=== PATIENT | male | born 1955 | race Caucasian/White ===

== ENCOUNTER 2018-11-25 12:31 | Inpatient (IN) | payer BC ==
[2018-11-25 12:44] VITALS: BMI 29.9
--- NOTE | 2018-11-25 12:52 | PDOC ---
History of Present Illness - General Chief Complaint: Chest Pain Stated Complaint: CHEST PAIN Time Seen by Provider: 11/25/18 12:51 - History of Present Illness Initial Comments: 11/25/18 12:51 Mr. Monge is a 63 yo male w/ pmh of HTN, HLD, HI (s/p 3 stents) who presents for evaluation of 1 day history of left sided chest pain. Patient reports it as a "twinge" and says it is exacerbated by deep inspiration. Patient denies any associated symptoms and reports it started last night. Cannot relate it to any activity. The patient denies shortness of breath, headache and dizziness. Denies fever, chills, nausea, vomit, diarrhea and constipation. Denies dysuria, frequency, urgency and hematuria. Past History - Past Medical History Allergies/Adverse Reactions: Allergies Allergy/AdvReac Type Severity Reaction Status Date / Time Sulfa (Sulfonamide Allergy Swelling Verified 11/25/18 12:41 Antibiotics) [Sulfa(Sulfonamide Antibiotics)] Home Medications: Ambulatory Orders Aspirin [ASA -] 81 mg PO DAILY #0 12/30/12 Amlodipine Besylate 0 mg PO DAILY 11/25/18 Atorvastatin Ca [Lipitor] 0 mg PO HS 11/25/18 Carvedilol [Coreg -] 0 mg PO BID 11/25/18 Lisinopril 0 mg PO BID 11/25/18 Ticagrelor [Brilinta] 0 mg PO BID 11/25/18 Anemia: No Asthma: No Cancer: No Cardiac Disorders: Yes (HI) CVA: No COPD: No CHF: No Dementia: No Diabetes: No GI Disorders: No Disorders: No HTN: Yes Hypercholesterolemia: Yes Liver Disease: No Seizures: No Thyroid Disease: No - Surgical History Abdominal Surgery: No Appendectomy: No Cardiac Surgery: Yes (STENT X3) Cholecystectomy: No Lung Surgery: No Neurologic Surgery: No Orthopedic Surgery: No - Immunization History Immunization Up to Date: Yes - Suicide/Smoking/Psychosocial Hx Smoking Status: Yes Smoking History: Never smoked Have you smoked in the past 12 months: No Number of Cigarettes Smoked Daily: 0 Hx Alcohol Use: No Drug/Substance Use Hx: Yes (MARIJUANA) Substance Use Type: None Hx Substance Use Treatment: No Review of Systems - Review of Systems Comments:: 11/25/18 12:51 GENERAL/CONSTITUTIONAL: No fever or chills. No weakness. HEAD, EYES, EARS, NOSE AND THROAT: No change in vision. No ear pain or discharge. No sore throat. CARDIOVASCULAR: +Left sided chest pain as described. No shortness of breath RESPIRATORY: No cough, wheezing, or hemoptysis. GASTROINTESTINAL: No nausea, vomiting, diarrhea or constipation. GENITOURINARY: No dysuria, frequency, or change in urination. MUSCULOSKELETAL: No joint or muscle swelling or pain. No neck or back pain. SKIN: No rash NEUROLOGIC: No headache, vertigo, loss of consciousness, or change in strength/ sensation. ENDOCRINE: No increased thirst. No abnormal weight change HEMATOLOGIC/LYMPHATIC: No anemia, easy bleeding, or history of blood clots. ALLERGIC/IMMUNOLOGIC: No hives or skin allergy. *Physical Exam - Vital Signs Last Vital Signs Temp Pulse Resp BP Pulse Ox 98.1 F 65 16 140/95 98 11/25/18 12:41 11/25/18 12:41 11/25/18 12:41 11/25/18 12:41 11/25/18 12:41 - Physical Exam Comments: 11/25/18 12:51 GENERAL: Awake, alert, and fully oriented, in no acute distress HEAD: No signs of trauma, normocephalic, atraumatic EYES: PERRLA, EOMI, sclera anicteric, conjunctiva clear ENT: Auricles normal inspection, hearing grossly normal, nares patent, oropharynx clear without exudates. Moist mucosa NECK: Normal ROM, supple, no lymphadenopathy, JVD, or masses LUNGS: No distress, speaks full sentences, clear to auscultation bilaterally HEART: Regular rate and rhythm, normal S1 and S2, no murmurs, rubs or gallops, peripheral pulses normal and equal bilaterally. ABDOMEN: Soft, nontender, normoactive bowel sounds. No guarding, no rebound. No masses EXTREMITIES: Normal inspection, Normal range of motion, no edema. No clubbing or cyanosis. NEUROLOGICAL: Cranial nerves II through XII grossly intact. Normal speech, normal gait, no focal sensorimotor deficits SKIN: Warm, Dry, normal turgor, no rashes or lesions noted. Moderate Sedation - Procedure Monitoring Vital Signs: Procedure Monitoring Vital Signs Temperature 98.1 F 11/25/18 12:41 Pulse Rate 65 11/25/18 12:41 Respiratory Rate 16 11/25/18 12:41 Blood Pressure 140/95 11/25/18 12:41 O2 Sat by Pulse Oximetry (%) 98 11/25/18 12:41 ED Treatment Course - LABORATORY CBC & Chemistry Diagram: 11/25/18 13:29 11/25/18 13:29 Medical Decision Making - Medical Decision Making 11/25/18 15:28 Mr. Monge is a 63 yo male w/ pmh as described who presents for evaluation of pleuritic chest pain in the setting of cardiac stents. Patient evaluated using labs including cardiac and d-dimer. D-dimer positive as below; patient currently pending Chest CTA for further evaluation. 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 Xiong. Discussed patient with Dr. Xiong's office who will fax old EKG to ER. Patient admitted for observation at this time regardless of CTA results. 11/25/18 17:47 CTA significant for extensive nonspecific mediastinal lymphadenopathy increased from prior exam. Also nonspecific 0.6cm L upper lobe pulmonary nodule as well as several small non-calcified stable R sided nodules. Discussed results with patient who consented to admission for observation and further investigation. Laboratory Results - last 24 hr 11/25/18 11/25/18 11/25/18 13:29 13:29 13:29 WBC 8.4 RBC 4.73 Hgb 14.4 Hct 40.8 MCV 86.3 MCH 30.5 MCHC 35.4 RDW 14.1 Plt Count 205 MPV 9.2 Absolute Neuts (auto) 6.7 Neutrophils % 79.5 Lymphocytes % 6.8 L D Monocytes % 7.2 Eosinophils % 5.4 H Basophils % 1.1 Nucleated RBC % 0 D-Dimer 1003 H Sodium 137 Potassium 3.8 Chloride 103 Carbon Dioxide 27 Anion Gap 7 L BUN 13 Creatinine 1.0 Creat Clearance w eGFR > 60 Random Glucose 111 H Calcium 8.9 Total Bilirubin 0.8 AST 17 ALT 29 Alkaline Phosphatase 91 Creatine Kinase 99 Troponin I < 0.02 Total Protein 7.3 Albumin 3.7 *DC/Admit/Observation/Transfer Diagnosis at time of Disposition: Chest pain Qualifiers: Chest pain type: unspecified Qualified Code(s): R07.9 - Chest pain, unspecified - Discharge Dispostion Decision to Admit order: Yes - Referrals - Patient Instructions - Post Discharge Activity
--- NOTE | 2018-11-25 13:08 | PDOC ---
Attending Attestation - ED Attending Attestation I have performed the following: I have examined & evaluated the patient, The case was reviewed & discussed with the resident, I agree w/resident's findings & plan, Exceptions are as noted - Physicial Exam PE: 11/25/18 13:51 awake alert lungs clear bilat heart rrr no mrg abd soft nt nd. ext wwp no edema. no calf tenderness. 2 + symmetric pulses bilaterally. nuero alert oriented x 3. skin warm and dry no rash. - Medical Decision Making 11/25/18 13:50 63 yo male ho HTN HLD, CAD ( 3 stents 2000, and 2 in 2014) follows dr willett cardiology here with intermittent plueritic sharp chest pain left sided. no radiation, no other mod factors. no sob. no leg swelling no h/lo pe or dvt. no calf pain. no recent travel. pt has seen dr. willett in 09/02 last stress 01/31. no pain currently. did take asa and brelenta today. <Jazmin Olson - Last Filed: 11/25/18 13:49> - HPI HPI: 11/25/18 14:07 Patient is a 63 year old male with a significant past medical history of hypertension and hypercholesterolemia (cardiac stents placed), who presents to the ED with complaints of chest pain that began last night. Patient reports experiencing mild chest pain that he states is a twinge pain that increases in intensity with deep inspiration. He reports coming into the ED for further evaluation after chest pain failed to subside over time. Denies chest pain, sob. Denies nausea, vomiting. Denies fevers, chills. Denies dysuria, hematuria. Denies constipation, Allergies: Sulfa Social history: No smoking. No alcohol. Current marijuana use. Surgical history: Caridac stents. PMD: None Cardiac Cath Lab Manager: Dr. Willett <Héctor Carmen - Last Filed: 11/25/18 14:07> Heart Score/ECG Review #1 General ECG Interpretation: Sinus Rhythm, Normal Rate, Normal Intervals Compared to previous ECG there are: Other (RBBB, TWI v1 - v3, change from ) - Era Era: Left Era Deviation <Jazmin Olson - Last Filed: 11/25/18 13:49>
[2018-11-25] MEDS ORDERED: ASPIRIN 81 MG CHEWABLE TABLETS PO ONE (13:17)
[2018-11-25] MEDS ORDERED: ASPIRIN 81 MG CHEWABLE TABLETS ONE (13:33)
[2018-11-25 14:00] LABS: BASO % 1.1 % (0-2.0); EOS % 5.4 % (0-4.5); HEMATOCRIT 40.8 % (35.4-49); HEMOGLOBIN 14.4 GM/dL (11.7-16.9); LYMPH % 6.8 % (8-40); MCH 30.5 pg (25.7-33.7); MCHC 35.4 g/dl (32.0-35.9); MEAN CELL VOLUME 86.3 fl (80-96); MEAN PLT VOLUME 9.2 fl (7.5-11.1); MONO % 7.2 % (3.8-10.2); NEUT % 79.5 % (42.8-82.8); PLATELET COUNT 205 K/MM3 (134-434); RBC 4.73 M/mm3 (4.00-5.60); RDW 14.1 % (11.9-15.9); WHITE BLOOD COUNT 8.4 K/mm3 (4.0-10.0)
[2018-11-25 14:36] LABS: ALBUMIN 3.7 g/dl (3.4-5.0); ALK PHOS 91 U/L (45-117); ANION GAP 7 MMOL/L (8-16); BILIRUBIN,TOTAL 0.8 mg/dL (0.2-1); BLOOD UREA NITROGEN 13 mg/dL (7-18); CALCIUM 8.9 mg/dL (8.5-10.1); CHLORIDE 103 mmol/L (98-107); CO2 27 mmol/L (21-32); GLUCOSE,RANDOM 111 mg/dL (74-106); POTASSIUM 3.8 mmol/L (3.5-5.1); SGOT/AST 17 U/L (15-37); SGPT/ALT 29 U/L (13-61); SODIUM 137 mmol/L (136-145); TOT PROT 7.3 g/dl (6.4-8.2)
--- NOTE | 2018-11-25 14:57 | CON.CARD ---
Consult Consult Specialty:: Cardiology Referred by:: Emergency Medicine Reason for Consultation:: Chest pain - History of Present Illness Chief Complaint: Chest pain History of Present Illness: 63 yo WM HTN, chol, CAD post STEMI (mLAD ISR) s/p ALTON 2014, presumptive pulmonary sarcoidosis (never biopsied) last seen in office 09/01/2018 presents for evaluation of 1 day history of sharp, non-exertional left sided chest pain characterized as a "twinge" and says it is exacerbated by deep inspiration and certain positions. Patient denies any associated symptoms of dyspnea, near or true syncope, palpitations, orthopnea, PND or LE edema. Cannot relate it to any activity. - History Source History Provided By: Patient Limitations to Obtaining History: No Limitations - Alcohol/Substance Use Hx Alcohol Use: No - Smoking History Smoking history: Never smoked Have you smoked in the past 12 months: No Aproximately how many cigarettes per day: 0 Home Medications - Allergies Allergies/Adverse Reactions: Allergies Allergy/AdvReac Type Severity Reaction Status Date / Time Sulfa (Sulfonamide Allergy Swelling Verified 11/25/18 12:41 Antibiotics) [Sulfa(Sulfonamide Antibiotics)] - Home Medications Home Medications: Ambulatory Orders Aspirin [ASA -] 81 mg PO DAILY #0 12/30/12 Amlodipine Besylate 0 mg PO DAILY 11/25/18 Atorvastatin Ca [Lipitor] 0 mg PO HS 11/25/18 Carvedilol [Coreg -] 0 mg PO BID 11/25/18 Lisinopril 0 mg PO BID 11/25/18 Ticagrelor [Brilinta] 0 mg PO BID 11/25/18 Review of Systems - Review of Systems Cardiovascular: reports: Chest Pain Vital Signs: Vital Signs Temperature 98.1 F 11/25/18 12:41 Pulse Rate 65 11/25/18 12:41 Respiratory Rate 16 11/25/18 12:41 Blood Pressure 140/95 11/25/18 12:41 O2 Sat by Pulse Oximetry (%) 98 11/25/18 12:41 Constitutional: Yes: No Distress, Calm Neck: Yes: Supple Respiratory: Yes: Regular, CTA Bilaterally Gastrointestinal: Yes: Normal Bowel Sounds, Soft Cardiovascular: Yes: Regular Rate and Rhythm JVD: No Carotid Bruit: No Heart Sounds: Yes: S1, S2 Edema: No - Other Data Labs, Other Data: CBC, BMP 11/25/18 13:29 11/25/18 13:29 Troponin, BNP 11/25/18 13:29 Troponin I < 0.02 Troponin, BNP 11/25/18 13:29 Troponin I < 0.02 NSR @ 63 1st deg AVB LAFB, LVH c/w previous, anterior STEMI no longer seen Imaging - Results Chest X-ray: Image Reviewed Cat Scan: Report Reviewed (Extensive mediastinal LAD, no PE) Problem List - Problems (1) Atypical chest pain Code(s): R07.89 - OTHER CHEST PAIN (2) Status post insertion of drug-eluting stent into left anterior descending ( LAD) artery Code(s): Z95.5 - PRESENCE OF CORONARY ANGIOPLASTY IMPLANT AND GRAFT (3) Old anterior myocardial infarction Code(s): I25.2 - OLD MYOCARDIAL INFARCTION (4) Hypertension Code(s): I10 - ESSENTIAL (PRIMARY) HYPERTENSION Qualifiers: Hypertension type: essential hypertension Qualified Code(s): I10 - Essential (primary) hypertension (5) Hyperlipidemia LDL goal <70 Code(s): E78.5 - HYPERLIPIDEMIA, UNSPECIFIED (6) Mediastinal lymphadenopathy due to sarcoidosis Code(s): R59.0 - LOCALIZED ENLARGED LYMPH NODES; D86.1 - SARCOIDOSIS OF LYMPH NODES Assessment/Plan Oct 2017 MPI: moderate apical infarct with small latricia-infarct ischemia, LVEF 54% Sep 2017 Echo: Normal LV systolic fxn, mild impaired LV relaxation, mild MR, TR , CT 1. Atypical chest pain syndrome, ruled out for PE 2. CAD s/p STEMI (mLAD in-stent restenosis) post ALTON, angina pectoris 3. HTN 4. Hyperlipidemia 5. Pulmonary sarcoidosis (not biopsy confirmed) 6. Low vit D levels P:1. Ruling out for CA 2. Continue Norvasc 10 qd, ASA 81 qd, Lipitor 40 qd, Brilinta 60 bid, carvedilol 25 bid, lisinopril 20 bid 3. Thank you for consultative opportunuty, f/u with Dr. Xiong upon d/c
--- NOTE | 2018-11-25 15:53 | EKG ---
Test Reason : Blood Pressure : / mmHG Vent. Rate : 063 BPM Atrial Rate : 063 BPM P-R Int : 218 ms QRS Dur : 158 ms QT Int : 454 ms P-R-T Axes : 034 -56 011 degrees QTc Int : 464 ms SINUS RHYTHM WITH 1ST DEGREE A-V BLOCK RIGHT BUNDLE BRANCH BLOCK LEFT ANTERIOR FASCICULAR BLOCK BIFASCICULAR BLOCK MODERATE VOLTAGE CRITERIA FOR LVH, MAY BE NORMAL VARIANT CANNOT RULE OUT SEPTAL INFARCT , AGE UNDETERMINED ABNORMAL ECG WHEN COMPARED WITH ECG OF 12-JUL-2015 01:20, QRS DURATION HAS INCREASED MINIMAL CRITERIA FOR SEPTAL INFARCT ARE NOW PRESENT T WAVE INVERSION NOW EVIDENT IN ANTERIOR LEADS Confirmed by VIC CHAPMAN MD ([id number]) on 11/25/2018 3:53:05 PM Referred By: Confirmed By:VIC CHAPMAN MD
[2018-11-25] MEDS: LISINOPRIL 10 MG TABLET (FP) PO SCH (21:15)
[2018-11-25] MEDS: CARVEDILOL 12.5 MG TABLET (FP) PO SCH (21:16)
[2018-11-25 21:20] LABS: CHOLESTEROL 151 mg/dL (50-200); HDL CHOLESTEROL 35 mg/dL (40-60); TRIGLYCERIDES 147 mg/dL (0-150)
[2018-11-25] MEDS ORDERED: ATORVASTATIN CA 40 MG TABLET (FP) PO SCH (22:00)
[2018-11-25] MEDS: TICAGRELOR 60 MG TABLET PO SCH (22:30)
[2018-11-26 06:46] LABS: BASO % 1.3 % (0-2.0); EOS % 6.3 % (0-4.5); HEMATOCRIT 42.9 % (35.4-49); HEMOGLOBIN 14.1 GM/dL (11.7-16.9); LYMPH % 9.3 % (8-40); MCH 28.7 pg (25.7-33.7); MCHC 32.9 g/dl (32.0-35.9); MEAN CELL VOLUME 87.4 fl (80-96); MEAN PLT VOLUME 9.3 fl (7.5-11.1); NEUT % 73.1 % (42.8-82.8); PLATELET COUNT 186 K/MM3 (134-434); RBC 4.91 M/mm3 (4.00-5.60); RDW 14.2 % (11.9-15.9); WHITE BLOOD COUNT 7.6 K/mm3 (4.0-10.0)
[2018-11-26 07:22] LABS: ALBUMIN 3.8 g/dl (3.4-5.0); ALK PHOS 89 U/L (45-117); ANION GAP 7 MMOL/L (8-16); BILIRUBIN,TOTAL 0.9 mg/dL (0.2-1); BLOOD UREA NITROGEN 12 mg/dL (7-18); CHLORIDE 104 mmol/L (98-107); CO2 29 mmol/L (21-32); CREATININE 0.9 mg/dL (0.55-1.3); GLUCOSE,RANDOM 86 mg/dL (74-106); POTASSIUM 3.6 mmol/L (3.5-5.1); SGOT/AST 14 U/L (15-37); SGPT/ALT 28 U/L (13-61); SODIUM 139 mmol/L (136-145); TOT PROT 7.3 g/dl (6.4-8.2)
--- NOTE | 2018-11-26 08:00 | HP ---
Admitting History and Physical - Admission History of Present Illness: 63 yo male ho HTN HLD, CAD ( 3 stents 2000, and 2 in 2014) c/o intermittent plueritic sharp chest pain left sided. no radiation, no other mod factors. no sob. no leg swelling no h/lo pe or dvt. no calf pain. no recent travel. pt has seen dr. willett in 09/02 last stress 01/31. no pain currently. - Past Medical History Cardiovascular: Yes: CAD, HTN, Hyperlipdemia Pulmonary: No: Asthma, COPD Hepatobiliary: No: Cirrhosis Heme/Onc: No: Anemia - Past Surgical History Past Surgical History: Yes: Stent (x3) - Smoking History Smoking history: Never smoked Have you smoked in the past 12 months: No Aproximately how many cigarettes per day: 0 - Alcohol/Substance Use Hx Alcohol Use: No Home Medications - Allergies Allergies/Adverse Reactions: Allergies Allergy/AdvReac Type Severity Reaction Status Date / Time Sulfa (Sulfonamide Allergy Swelling Verified 11/25/18 12:41 Antibiotics) [Sulfa(Sulfonamide Antibiotics)] - Home Medications Home Medications: Ambulatory Orders Aspirin [ASA -] 81 mg PO DAILY #0 12/30/12 Amlodipine Besylate 0 mg PO DAILY 11/25/18 Atorvastatin Ca [Lipitor] 0 mg PO HS 11/25/18 Carvedilol [Coreg -] 0 mg PO BID 11/25/18 Lisinopril 0 mg PO BID 11/25/18 Ticagrelor [Brilinta] 0 mg PO BID 11/25/18 Review of Systems - Review of Systems Cardiovascular: reports: Chest Pain. denies: Palpitations, Shortness of Breath Respiratory: denies: Cough, Hemoptysis, Orthopnea, SOB Gastrointestinal: denies: Abdominal Pain Physical Examination Vital Signs: Vital Signs Temperature 97.5 F L 11/26/18 06:00 Pulse Rate 65 11/26/18 06:00 Respiratory Rate 18 11/26/18 06:00 Blood Pressure 133/70 11/26/18 06:00 O2 Sat by Pulse Oximetry (%) 98 11/25/18 21:00 Cardiovascular: Yes: Regular Rate and Rhythm Respiratory: Yes: Regular, CTA Bilaterally Gastrointestinal: Yes: Normal Bowel Sounds, Soft. No: Tenderness Edema: No Labs: CBC, BMP 11/26/18 05:30 11/26/18 05:30 Imaging - Results Cat Scan: Report Reviewed (No PE Lymphadenopathy Pulm nodule) Problem List - Problems (1) Atypical chest pain Assessment/Plan: -CE Negative -PT states had a negative stress test within the year--reported neg -Cardio follow up Code(s): R07.89 - OTHER CHEST PAIN (2) Pulmonary nodule Assessment/Plan: -Pulm consult--may need pet as outpatient Code(s): R91.1 - SOLITARY PULMONARY NODULE (3) Hyperlipidemia LDL goal <70 Assessment/Plan: same meds Code(s): E78.5 - HYPERLIPIDEMIA, UNSPECIFIED (4) Hypertension Assessment/Plan: controlled Code(s): I10 - ESSENTIAL (PRIMARY) HYPERTENSION Qualifiers: Hypertension type: essential hypertension Qualified Code(s): I10 - Essential (primary) hypertension (5) Mediastinal lymphadenopathy due to sarcoidosis Assessment/Plan: -Per Pulm Code(s): R59.0 - LOCALIZED ENLARGED LYMPH NODES; D86.1 - SARCOIDOSIS OF LYMPH NODES
[2018-11-26] MEDS ORDERED: ASPIRIN 81 MG CHEWABLE TABLETS PO SCH (10:00)
[2018-11-26] MEDS ORDERED: amLODIPine BESYLATE 5 MG TABLET (FP) PO SCH (10:00)
--- NOTE | 2018-11-26 10:28 | PN ---
Progress Note, Physician History of Present Illness: Left-sided atypical pleuritic chest pain has resolved, no events on telemetry. - Current Medication List Current Medications: Active Medications Amlodipine Besylate (Norvasc -) 5 mg PO DAILY COUNTS INCLUDE 234 BEDS AT THE [facility] Aspirin (Asa -) 81 mg PO DAILY COUNTS INCLUDE 234 BEDS AT THE [facility] Atorvastatin Calcium (Lipitor -) 40 mg PO HS COUNTS INCLUDE 234 BEDS AT THE [facility] Last Admin: 11/25/18 21:15 Dose: 40 mg Carvedilol (Coreg -) 12.5 mg PO BID COUNTS INCLUDE 234 BEDS AT THE [facility] Last Admin: 11/25/18 21:16 Dose: 12.5 mg Lisinopril (Prinivil) 10 mg PO BID COUNTS INCLUDE 234 BEDS AT THE [facility] Last Admin: 11/25/18 21:15 Dose: 10 mg Ticagrelor (Brilinta) 60 mg PO BID COUNTS INCLUDE 234 BEDS AT THE [facility] Last Admin: 11/25/18 22:30 Dose: 60 mg - Objective Vital Signs: Vital Signs Temperature 97.5 F L 11/26/18 06:00 Pulse Rate 65 11/26/18 06:00 Respiratory Rate 18 11/26/18 06:00 Blood Pressure 133/70 11/26/18 06:00 O2 Sat by Pulse Oximetry (%) 98 11/25/18 21:00 Constitutional: Yes: No Distress, Calm Neck: Yes: Supple Cardiovascular: Yes: Regular Rate and Rhythm Respiratory: Yes: Regular, CTA Bilaterally Gastrointestinal: Yes: Normal Bowel Sounds, Soft Edema: No Labs: CBC, BMP 11/26/18 05:30 11/26/18 05:30 - ....Imaging EKG: Report Reviewed (Tele: NSR) Problem List - Problems (1) Atypical chest pain Code(s): R07.89 - OTHER CHEST PAIN (2) Status post insertion of drug-eluting stent into left anterior descending ( LAD) artery Code(s): Z95.5 - PRESENCE OF CORONARY ANGIOPLASTY IMPLANT AND GRAFT (3) Old anterior myocardial infarction Code(s): I25.2 - OLD MYOCARDIAL INFARCTION (4) Hypertension Code(s): I10 - ESSENTIAL (PRIMARY) HYPERTENSION Qualifiers: Hypertension type: essential hypertension Qualified Code(s): I10 - Essential (primary) hypertension (5) Hyperlipidemia LDL goal <70 Code(s): E78.5 - HYPERLIPIDEMIA, UNSPECIFIED (6) Mediastinal lymphadenopathy due to sarcoidosis Code(s): R59.0 - LOCALIZED ENLARGED LYMPH NODES; D86.1 - SARCOIDOSIS OF LYMPH NODES Assessment/Plan Oct 2017 MPI: moderate apical infarct with small latricia-infarct ischemia, LVEF 54% Sep 2017 Echo: Normal LV systolic fxn, mild impaired LV relaxation, mild MR, TR , NE 1. Atypical chest pain syndrome, ruled out for PE 2. CAD s/p STEMI (mLAD in-stent restenosis) post ALTON, angina pectoris 3. HTN 4. Hyperlipidemia 5. Presumed pulmonary sarcoidosis with extensive mediastinal LAD (not biopsy confirmed) 6. Low vit D levels P:1. Ruled out for DE 2. Continue Norvasc 10 qd, ASA 81 qd, Lipitor 40 qd, Brilinta 60 bid, carvedilol 25 bid, lisinopril 20 bid 3. F/u with Dr. Xiong upon d/c, mediastinoscopy for LN biopsy
[2018-11-26] MEDS ORDERED: PT OWN MED DRAWER 7, Y5N ONE (11:08)
[2018-11-26] MEDS: LISINOPRIL 10 MG TABLET (FP) PO SCH (11:47)
--- NOTE | 2018-11-26 11:47 | PN ---
Progress Note (short form) - Note Progress Note: PULMONARY CONSULTATION DICTATED 11/26/18 IMP EXTENSIVE MEDIASTINAL/HILAR ADENOPATHY MOST LIKELY PULMONARY SARCOID JENNI NODULE LIKELY INFLAMMATORY ,? SARCOID H/O UVEITIS CHEST PAIN ASHD S/P IN ,S/P STENTS HLD HTN PLAN PFTS OUTPAYIENT ALEX LEVEL OUTPATIENT PET SCAN OUTPATIENT THORACIC SURGERY EVALUATION FOR EBUS-TBNA BX, POSSIBLE MEDIASTINOSCOPY CARDIAC W/U F/U CHEST CT 4 MONTH TO DOCUMENT STABILITY JENNI NODULE DR LEZAMA Problem List - Problems (1) Atypical chest pain Code(s): R07.89 - OTHER CHEST PAIN (2) Mediastinal lymphadenopathy due to sarcoidosis Code(s): R59.0 - LOCALIZED ENLARGED LYMPH NODES; D86.1 - SARCOIDOSIS OF LYMPH NODES (3) Old anterior myocardial infarction Code(s): I25.2 - OLD MYOCARDIAL INFARCTION (4) Pulmonary nodule Code(s): R91.1 - SOLITARY PULMONARY NODULE (5) Status post insertion of drug-eluting stent into left anterior descending ( LAD) artery Code(s): Z95.5 - PRESENCE OF CORONARY ANGIOPLASTY IMPLANT AND GRAFT (6) STEMI (ST elevation myocardial infarction) Code(s): I21.3 - ST ELEVATION (STEMI) MYOCARDIAL INFARCTION OF UNSP SITE (7) Mediastinal lymphadenopathy Code(s): R59.0 - LOCALIZED ENLARGED LYMPH NODES (8) Hypertension Code(s): I10 - ESSENTIAL (PRIMARY) HYPERTENSION Qualifiers: Hypertension type: essential hypertension Qualified Code(s): I10 - Essential (primary) hypertension
[2018-11-26] MEDS: TICAGRELOR 60 MG TABLET PO SCH (11:48)
[2018-11-26] MEDS: CARVEDILOL 12.5 MG TABLET (FP) PO SCH (11:48)
--- NOTE | 2018-11-26 12:42 | PN ---
Progress Note (short form) - Note Progress Note: Thoracic Surgery: Images reviewed. Symmetric mediastinal adenopathy, small nodule. Needs outpatient workup including PET and pulmonary f/u, likely this is c/w sarcoid and could be managed based on symptoms. Will need interval imaging for comparison.
--- NOTE | 2018-11-26 13:28 | CONS ---
DATE OF CONSULTATION: 11/26/2018 REFERRING PHYSICIAN: Luanne Kang MD HISTORY: The patient is a 63-year-old white male with a past medical history of hypercholesterolemia, ASHD status post [place], status post drug-eluting stent in 2014, likely pulmonary sarcoid never had follow up admitted to [facility] with the complaint of 1-day history of sharp, left-sided, pleuritic chest pain increased on inspiration. The patient denied any complaints of shortness of breath, cough, or hemoptysis. Denied any fevers, chills, nausea, vomiting, or diaphoresis. On admission, the patient underwent a CTA of the chest, which revealed evidence of extensive mediastinal adenopathy and hilar adenopathy and a small nodule in the left upper lobe 0.6 cm. Of note, comparison to previous exam on August 26, 2006, there is increased size of the mediastinal adenopathy and bilateral hilar adenopathy mildly decreased. Of note is the patient also denies any skin rash. He does state that he went to an container maker a few years ago and told he had uveitis but was not advised any further workup. The patient denies any history of occupational exposure to chemicals or fumes. There is no history of recent travel. He denies any family history of sarcoid. PAST MEDICAL HISTORY: Again includes ASHD status post [place], status post multiple stents, hypertension, hyperlipidemia, uveitis. REVIEW OF SYSTEMS: No orthopnea, no PND, positive cough nonproductive, no fever , no chills, no weight loss, no night sweats. Positive mild left-sided chest pain. No lower extremities edema. No skin rashes. No significant visual disturbances. CURRENT MEDICATIONS: Include Prinivil, Coreg, Norvasc, Lipitor, aspirin, Balanta. PHYSICAL EXAMINATION: General: The patient is a well-developed, well-nourished male awake and alert in no acute distress. Vital Signs: He is afebrile. Blood pressure 133/70, respiratory rate is 18, O2 saturation 98. HEENT: Normocephalic and atraumatic. Neck: Supple. Heart: Regular with S1, S2. Chest: Clear. Abdomen: Soft. Bowel sounds are positive. Extremities: No cyanosis or edema. LABORATORIES: WBC 7.6, hemoglobin 14.1, hematocrit 42.9 with a platelet count of 186,000. D-dimer 1003. BUN 12, creatinine 0.9. Chest CT, again, is noted. Extensive mediastinal adenopathy, hilar adenopathy, and the left upper lobe, noncalcified pulmonary nodule. IMPRESSION: 1. Mediastinal adenopathy most likely secondary to sarcoidosis since this has been present since 2005 with mild increase in size without malignancy in view of the patient relatively asymptomatic and significant duration of findings on CAT scan. 2. Chest pain. 3. Arteriosclerotic heart disease status post myocardial infarction status post stents. 4. Hypertension. 5. Hyperlipidemia. 6. Uveitis. SUGGEST: Continue cardiac workup. Recommend PFT as an outpatient. Angiotensin converting enzyme level as an outpatient.PET scan outpatient. Will consider thoracic surgical consultation for EBUS-TBNA bx, possible mediastinoscopy. Obtain Ophthalmology follow up. BENJAMIN LEZAMA M.D. [id number] MTDD
--- NOTE | 2018-11-26 14:54 | DS ---
Physical Examination Vital Signs: Vital Signs Temperature 97.5 F L 11/26/18 06:00 Pulse Rate 78 11/26/18 10:00 Respiratory Rate 18 11/26/18 10:00 Blood Pressure 144/92 11/26/18 10:00 O2 Sat by Pulse Oximetry (%) 98 11/25/18 21:00 Labs: CBC, BMP 11/26/18 05:30 11/26/18 05:30 Discharge Summary Reason For Visit: CHEST PAIN Current Active Problems Atypical chest pain (Acute) Chest pain (Acute) Hyperlipidemia LDL goal <70 (Acute) Hypertension (Acute) Mediastinal lymphadenopathy (Acute) Mediastinal lymphadenopathy due to sarcoidosis (Acute) Old anterior myocardial infarction (Acute) Pulmonary nodule (Acute) Status post insertion of drug-eluting stent into left anterior descending (LAD) artery (Acute) Hospital Course: see note pt needs outpatient pet and work up Condition: Improved - Instructions Referrals: Jason Xiong MD [Primary Care Provider] - Luanne Kang MD [Staff Physician] - 2 Weeks Disposition: HOME - Home Medications Comprehensive Discharge Medication List: Ambulatory Orders Aspirin [ASA -] 81 mg PO DAILY #0 12/30/12 Amlodipine Besylate 0 mg PO DAILY 11/25/18 Atorvastatin Ca [Lipitor] 0 mg PO HS 11/25/18 Carvedilol [Coreg -] 0 mg PO BID 11/25/18 Lisinopril 0 mg PO BID 11/25/18 Ticagrelor [Brilinta] 0 mg PO BID 11/25/18
[2018-11-26 15:29] VITALS: BP 146/85; PULSE 68; TEMP 98.4
== END 2018-11-26 18:05 | disposition home or self-care (01) | DRG 313 ==
LOC: JER 12:31 → JERBED 14:43 → OBSVTOIN 17:00 → J4W 20:55
PROVIDERS: ADMIT Family Medicine; ATTEND Family Medicine
DX: R07.89 Other chest pain (principal); I10 Essential (primary) hypertension; E78.5 Hyperlipidemia, unspecified; I25.2 Old myocardial infarction; E78.00 Pure hypercholesterolemia, unspecified; R91.1 Solitary pulmonary nodule; I25.10 Atherosclerotic heart disease of native coronary artery without angina pectoris; R59.0 Localized enlarged lymph nodes; D86.1 Sarcoidosis of lymph nodes; Z95.5 Presence of coronary angioplasty implant and graft
CPT/HCPCS: 36415; 71046-TC-FY; 71275-TC; 80053; 80061; 82550; 83721; 84484; 85025; 85379; 93005; 93010; 99282-25; G0378

== ENCOUNTER 2020-08-27 01:24 | Observation (INO) | payer BC ==
--- NOTE | 2020-08-27 01:46 | PDOC ---
History of Present Illness - General Chief Complaint: Head/Neck problem Stated Complaint: HEAD PRESSURE Time Seen by Provider: 08/27/20 01:46 tPA Exclusion checklist 3-4.5h - Time Elapsed Date last known well: 08/26/20 Time last known well: 20:00 Elaspsed time: Day(s) and 10 Hour(s) and 37 Minutes - Thrombolytic Therapy Candidate Is patient eligible for thrombolytic therapy: No - Ineligibility reason(s) Reasons No tPA given: Outside of window - delayed arrival NIH Stroke Scale - Last Known Well Date/Time & Onset Date Last Known Well: 08/26/20 Time Last Known Well: 20:00 - Initial Evaluation Level of consciousness: Alert Ask patient the month and their age: Answers both correctly Ask patient to open & close eyes; make fist and let go: Obeys both correctly Best gaze (horizontal eye movement): Normal Visual field testing: No visual field loss Facial paresis (Show teeth/raise eyebrows/close eyes tight): Normal symmetrical movement Motor Function: Left Arm: Normal Motor Function: Right Arm: Normal (extends arm 90 (or 45) degrees for 10 seconds without drift Motor Function: Left Leg: Normal (extends leg 30 degrees for 5 seconds without drift) Motor Function: Right Leg: Normal (extends leg 30 degrees for 5 seconds without drift) Limb Ataxia: Present in two limbs Sensory(Use pinprick test arms,legs,trunk,face/side to side): Normal Best language (Describe picture, name items, read sentences): No Aphasia Dysarthria (read several words): Normal articulation Extinction and Inattention: No abnormality - Total Score NIH Stroke Scale Score: 2 Past History - Medical History Allergies/Adverse Reactions: Allergies Allergy/AdvReac Type Severity Reaction Status Date / Time Sulfa (Sulfonamide Allergy Swelling Verified 08/27/20 01:53 Antibiotics) [Sulfa(Sulfonamide Antibiotics)] Home Medications: Ambulatory Orders Aspirin [ASA -] 81 mg PO DAILY #0 12/30/12 Amlodipine Besylate 0 mg PO DAILY 11/25/18 Atorvastatin Ca [Lipitor] 0 mg PO HS 11/25/18 Carvedilol [Coreg -] 0 mg PO BID 11/25/18 Lisinopril 0 mg PO BID 11/25/18 Ticagrelor [Brilinta] 0 mg PO BID 11/25/18 Anemia: No Asthma: No Cancer: No Cardiac Disorders: Yes (DE) CVA: No COPD: No CHF: No Dementia: No Diabetes: No GI Disorders: No Disorders: No HTN: Yes Hypercholesterolemia: Yes Liver Disease: No Seizures: No Thyroid Disease: No - Surgical History Abdominal Surgery: No Appendectomy: No Cardiac Surgery: Yes (STENT X3) Cholecystectomy: No Lung Surgery: No Neurologic Surgery: No Orthopedic Surgery: No - Immunization History Immunization Up to Date: Yes - Psycho-Social/Smoking History Smoking Status: Yes Smoking History: Never smoked Have you smoked in the past 12 months: No Number of Cigarettes Smoked Daily: 0 ED Treatment Course - LABORATORY CBC & Chemistry Diagram: 08/27/20 02:47 08/27/20 02:47 Medical Decision Making - Medical Decision Making 08/27/20 01:47 HPI: 65yo M hx HTN, HLD, and CAD ( 3 stents 2000, and 2 in 2014) presents from home c/o sudden onset mild b/l frontal headache R>L constant unimproved with ibuprofen (advil) x3 and gait imbalance/difficulty walking. Feels unsteady on feet. Denies hx similar sx, lightheadedness, vertigo, syncope, N/V, diplopia, b lurred vision, floaters in vision, vision changes, hearing loss, tinnitus, neck pain or stiffness, facial droop, difficulty speaking, confusion, numbness/tingling, weakness, CP, SOB, cough, D/C, blood in stool, abdominal pain, urinary sx. USOH prior to 1999. Does yoga, normally great balance, no hx gait disturbances. Did not take 81mg aspirin yesterday. Denies smoking, alcohol, drug use. PE Broad-based ataxic gait, most prominent with heel-to-toe, toe walking, and heel walking. Slight wobbling while standing still with palms up both with eyes open and closed. AAOx3. PERRL. CN 2-12 intact. 5/5 strength in all extremities. Sensation to light touch intact in all extremities. No pronator drift. No dysmetria. No dysdiadochokinesia. No abnormal nystagmus. NIHSS 2 for ataxia (unchanged before and after CTH) No tPA due to outside window Ddx: ischemic stroke, ICH, SAH, vertigo, BPPV, meniere's, labyrinthitis, hyperglycemia, ACS/DE, arrhythmia, metabolic derangement, thyroid pathology, anemia, infection -BGM 122 -EKG -Stroke w/u -CTH -Pain management for [place]: Tylenol -Neuro consult: call placed to Dr Reed, pending call back -Dispo: admit for MRI and CVA/TIA w/u 08/27/20 03:01 IOC called regarding CTH: No hemorrhage. No mass. No shift or herniation. Osseous structures are intact. Also discussed was an additional finding of a 7.3 mm low-density focus just lateral or within the lateral aspect of the left basal ganglia. This could represent an infarct of indeterminate age. Please note that the patient has had ataxia for approximately 7 hours and therefore a cerebellar event is suspected. I recommended an MRI since posterior fossa acute or subacute infarcts are not always well seen on CT. There is also dark streak artifact going through a portion of the cerebellum on the scan which produces dark areas. -ASA 325mg -Meclizine 25mg -MRI/MRA 08/27/20 04:03 Labs reviewed. No concerning findings. EKG reviewed: sinus rhythm with 1st degree AV block, 63bpm, RBBB, L anterior f ascicular block, bifascicular block, no CANDICE elevations or depressions, biphasic T-wave in V2/V3/V4, Q waves in anterior leads CXR reviewed: No acute pathology -Admit Discharge - Discharge Information Problems reviewed: Yes Clinical Impression/Diagnosis: Ataxic gait, Headache Condition: Stable - Admission Yes - Follow up/Referral - Patient Discharge Instructions - Post Discharge Activity
--- OUTSIDE RECORDS SUMMARY | 2020-08-27 01:52 | XMS ---
:1955 Author Organization [facility] Support Name Relationship Address Phone [facility] [address] [place] [place] [address] ANGELA SPRAGUE [address] PH [phone] [place] [address] Re-disclosure Warning The records that you are about to access may contain information from federally- assisted alcohol or drug abuse programs. If such information is present, then the following federally mandated warning applies: This information has been disclosed to you from records protected by federal confidentiality rules (42 CFR part 2). The federal rules prohibit you from making any further disclosure of this information unless further disclosure is expressly permitted by the written consent of the person to whom it pertains or as otherwise permitted by 42 CFR part 2. A general authorization for the release of medical or other information is NOT sufficient for this purpose. The Federal rules restrict any use of the information to criminally investigate or prosecute any alcohol or drug abuse patient.The records that you are about to access may contain highly sensitive health information, the redisclosure of which is protected by Article 27-F of the [facility] Public Health law. If you continue you may haveaccess to information: Regarding HIV / AIDS; Provided by facilities licensed or operated by the [facility] Office of Mental Health; or Provided by the [facility] Office for People With Developmental Disabilities. If such information is present, then the following [facility] mandated warning applies: This information has been disclosed to you from confidential records which are protected by state law. State law prohibits you from making any further disclosure of this information without the specific written consent of the person to whom it pertains, or as otherwise permitted by law. Any unauthorized further disclosure in violation of state law may result in a fine or residential sentence or both. A general authorization for the release of medical or other information is NOT sufficient authorization for further disclosure. Insurance Providers Payer name Policy type / Policy ID Covered Covered democrat's Policy Plan Coverage type democrat ID relationship to Will Information will BC PPO [id number] SP [id number]
[2020-08-27 02:08] VITALS: BMI 31.7
--- NOTE | 2020-08-27 02:22 | PDOC ---
Attending Attestation - Resident Resident Name: Lissy Lawrence - ED Attending Attestation I have performed the following: I have examined & evaluated the patient, The case was reviewed & discussed with the resident, I agree w/resident's findings & plan - HPI HPI: 08/27/20 03:28 Pt comes with dizziness and being off balance - Physicial Exam PE: 08/27/20 06:29 Agree with resdident note. - Medical Decision Making 08/27/20 03:28 LIBBY SPRAGUE These findings were verbally communicated to Melinda Yuan Dr. on ThuAugust 27 2020 03:04:39 EDT Also discussed was an additional finding of a 7.3 mm low-density focus just lateral or within the lateral aspect of the left basal ganglia. This could represent an infarct of indeterminate age. Please note that the patient has had ataxia for approximately 7 hours and therefore a cerebellar event is suspected. I recommended an MRI since posterior fossa acute or subacute infarcts are not always well seen on CT. There is also dark streak artifact going through a portion of the cerebellum on the scan which produces dark areas. 08/27/20 06:29 Pt is admitted to the medicine hospitalist team. We are awaiting a bed. Discharge - Discharge Information Problems reviewed: Yes Clinical Impression/Diagnosis: Ataxic gait Headache Qualifiers: Headache type: unspecified Headache chronicity pattern: acute headache Intractability: not intractable Qualified Code(s): R51.9 - Headache, unspecified Condition: Stable Disposition: HOME - Follow up/Referral - Patient Discharge Instructions - Post Discharge Activity
[2020-08-27] MEDS ORDERED: ASPIRIN 325 MG TABLET PO ONE (03:12)
[2020-08-27] MEDS ORDERED: ACETAMINOPHEN 500 MG TABLET (FP) PO ONE (03:13)
[2020-08-27] MEDS ORDERED: MECLIZINE HCL 25 MG TABLET (FP) PO ONE (03:13)
[2020-08-27 03:15] LABS: BASO % 1.5 % (0-2.0); EOS % 8.7 % (0-4.5); HEMATOCRIT 41.9 % (35.4-49); HEMOGLOBIN 14.5 GM/dL (11.7-16.9); LYMPH % 10.3 % (8-40); MCH 30.5 pg (25.7-33.7); MCHC 34.7 g/dl (32.0-35.9); MEAN PLT VOLUME 9.4 fl (7.5-11.1); MONO % 7.8 % (3.8-10.2); NEUT % 71.7 % (42.8-82.8); PLATELET COUNT 173 K/MM3 (134-434); RBC 4.77 M/mm3 (4.00-5.60); RDW 14.5 % (11.9-15.9); WHITE BLOOD COUNT 8.4 K/mm3 (4.0-10.0)
[2020-08-27] MEDS ORDERED: ACETAMINOPHEN 325 MG TABLET (FP) ONE (03:28)
[2020-08-27] MEDS ORDERED: ASPIRIN 325 MG ENTERIC COATED TABLET (FP) ONE (03:28)
[2020-08-27] MEDS ORDERED: MECLIZINE HCL 25 MG TABLET (FP) ONE (03:28)
[2020-08-27 03:29] LABS: INR 1.28 (0.83-1.09)
[2020-08-27 03:32] LABS: ACTIVATED PTT 31.6 SECONDS (25.2-36.5)
[2020-08-27 03:45] LABS: ALBUMIN 3.8 g/dl (3.4-5.0); ALK PHOS 86 U/L (45-117); ANION GAP 6 MMOL/L (8-16); BILIRUBIN,TOTAL 0.6 mg/dL (0.2-1); BLOOD UREA NITROGEN 11.7 mg/dL (7-18); CALCIUM 8.9 mg/dL (8.5-10.1); CHLORIDE 105 mmol/L (98-107); CO2 28 mmol/L (21-32); CREATININE 1.1 mg/dL (0.55-1.3); GLUCOSE,RANDOM 108 mg/dL (74-106); POTASSIUM 3.6 mmol/L (3.5-5.1); SGOT/AST 15 U/L (15-37); SGPT/ALT 26 U/L (13-61); SODIUM 139 mmol/L (136-145); TOT PROT 7.4 g/dl (6.4-8.2)
--- NOTE | 2020-08-27 04:31 | PN ---
Teaching Attending Note Name of Resident: Jodi Zamora ATTENDING PHYSICIAN STATEMENT I saw and evaluated the patient. I reviewed the resident's note and discussed the case with the resident. I agree with the resident's findings and plan as documented. SUBJECTIVE: Patient is a 65 year old man with a PMH of HTN, HLD, Sarcoidosis and CAD (3 stents 2000/2 in 2014) presents to the ER with complaint of sudden onset of mild bilateral constant frontal headache (R>L) and gait imbalance/difficulty walking. Feels unsteady on feet. Headache didnot improve with Ibuprofen. Denies history of similar symptoms in the past. Denies lightheadedness, vertigo, syncope, vision changes, hearing loss, neck pain or stiffness, facial droop, difficulty speaking, confusion, numbness/tingling or weakness. Patient denies chest pain, shortness of breath, abdominal pain, palpitations, fever, chills, nausea, vomiting, diarrhea, constipation, dysuria, frequency, urgency, melena, hematochezia or hematuria. Smokes marijuana daily. Denies alcohol, tobacco or illicit drug use. No sick contacts or recent travels. Family history of heart disease on both sides of the family. OBJECTIVE: Alert Vital Signs Period Temp Pulse Resp BP Sys/Avila Pulse Ox Last 24 Hr 98.5 F 75 18 151/94 97 HEENT: No Jaundice, eye redness or discharge, PERRLA, EOMI. Normocephalic, atraumatic. External ears are normal and hearing is grossly intact. No nasal discharge. Neck: Supple, nontender. No palpable adenopathy or thyromegaly. No JVD Chest: Good effort. Clear to auscultation and percussion. Heart: Regular. No S3, rub or murmur Abdomen: Not distended, soft, nontender and no HSM. No rebound or guarding. Normal bowel sounds. Ext: Peripheral pulses intact. No leg edema. Skin: Warm and dry. No petechiae, rash or ecchymosis. Neuro: Alert. Oriented x3. CN 2-12 grossly intact. Sensation grossly intact in all four extremities and DTR are symmetric. Unsteady gait. Psych: Appropriate mood and affect. Good insight. Home Medications Medication Instructions Recorded Aspirin [ASA -] 81 mg PO DAILY #0 12/30/12 Amlodipine Besylate 0 mg PO DAILY 11/25/18 Atorvastatin Ca [Lipitor] 0 mg PO HS 11/25/18 Carvedilol [Coreg -] 0 mg PO BID 11/25/18 Lisinopril 0 mg PO BID 11/25/18 Ticagrelor [Brilinta] 0 mg PO BID 11/25/18 Abnormal Lab Results 08/27/20 08/27/20 08/27/20 02:47 02:47 02:47 Eosinophils % 8.7 H PT with INR 15.00 H INR 1.28 H Anion Gap Random Glucose HDL Cholesterol 39 L 08/27/20 02:47 Eosinophils % PT with INR INR Anion Gap 6 L Random Glucose 108 H HDL Cholesterol Current Medications Generic Name Dose Route Start Last Admin Trade Name Freq PRN Reason Stop Dose Admin Aspirin 81 mg 08/27/20 10:00 Asa - PO DAILY REPLACED BY [facility] Atorvastatin Calcium 80 mg 08/27/20 22:00 Lipitor - PO HS REPLACED BY [facility] Enoxaparin Sodium 40 mg 08/27/20 10:00 Lovenox - SQ DAILY REPLACED BY [facility] ASSESSMENT AND PLAN: 1. Rule out CVA - CXR shows cardiomegaly, unfolded aorta and wide mediastinum with no evidence of acute lung disease. No evidence of acute intracranial pathology on noncontrast head CT scan. CTA head/neck didnot reveal any acute abnormality. NIHSS score was 2. patient is outside the window for tPA. Got Meclizine, Tylenol, Aspirin 325 mg in the ER. EKG shows NSR at 63/minute,1o AV block, RBBB, left anterior fascicular block and QTc 437 with no significant acute ischemic ST-T wave changes. Not significantly changed compared to prior EKG. Initial troponin is negative. Will admit to telemetry, get urinalysis, trend troponin, repeat EKG, get ECHO, carotid doppler, brain MRI, do speech and swallow evaluation, neurochecks and implement fall/aspiration/seizure precautions. Continue Aspirin, high dose statin and consult PT/Neurology. 2. Obesity Counseled on the risks associated with obesity. Will provide patient all the necessary assistance, counseling and positive reinforcement to facilitate weight loss. Consult water softener servicer. 3. Hypertension Will allow permissive hypertension for 24 to 48 hours. Will restart suitable outpatient antihypertensive drugs when clinically appropriate. Subsequently, will revise regimen to ensure [id number] excellent BP control. Patient counseled on the injurious effects of uncontrolled hypertension. Nonpharmacologic measures to control hypertension like weight loss, salt restriction and exercise stressed. Importance of adherence to treatment regimen and attainment of normotension emphasized. 4. DVT prophylaxis - Lovenox 40 mg SQ q 24 hours. 5. Advance directives - Full code
--- OUTSIDE RECORDS SUMMARY | 2020-08-27 04:44 | XMS ---
:1955 Author Organization [facility] Support Name Relationship Address Phone [facility] Unavailable [address] [place] [address] [facility] Unavailable [address] [place] [address] [address]A SPRAGUE [address] PH [phone] [place] [address] Re-disclosure Warning The records that you are [...] is protected by Article 27-F of the [facility] Public Health law. If you continue you may haveaccess to information: Regarding HIV / AIDS; Provided by facilities licensed or operated by the [facility] Office of Mental Health; or Provided by the [facility] Office for People With Developmental Disabilities. If such information is present, then the following [facility] mandated warning applies: This information has been [...] law may result in a fine or intermediate sentence or both. A general authorization for the release of medical or other information is NOT sufficient authorization for further disclosure. Insurance Providers Payer name Policy type / Policy ID Covered Covered alliance party's Policy Plan Coverage type alliance party ID relationship to Will Information will PPO [id number] SP [id number]
--- NOTE | 2020-08-27 06:03 | HP ---
CHIEF COMPLAINT: Unsteady gait HISTORY OF PRESENT ILLNESS: Alcides Monge is a 65 year old man with PMH hypertension, hyperlipidemia, CAD and ID (stent placed in 2000, then two stents placed 2014), sarcoidosis, who is presenting with unsteady gait since 08/26/2020 20:00. He was watching tv, got up to use the restroom, and felt very unsteady on his feet, reports 'wobbling' to the restroom. He decided to wait to see if symptoms resolved but they persisted throughout the evening. He also describes a pressure in the head, rated as 3/10, band like sensation across the forehead, that began at approximately 20:00. When the unsteady gait and headache persisted, he decided to present to the ED. He denies, lightheadedness, syncope, fall. Of note, this past week he has been experiencing intermittent chest pain that alternates sides, and occurs at rest. He states the pain is alleviated by walking around. He has never experienced these symptoms before. ER course was notable for: - Vitals T 98.5, HR 75, BP 151/94, RR 18, O2 sat 97 on room air - Administration of aspirin, meclizine 25, tylenol - CT head: no detectable infarct, no hemorrhage - CXR: possible sarcoid nodules on the right lung field - NIHSS stroke scale 2 Recent Travel: none PAST MEDICAL HISTORY: Hypertension Hyperlipidemia CAD (3 stents; 1 in 2000; 2 in 2014 following an ID) Sarcoidosis PAST SURGICAL HISTORY: Stents placed in 2000 and 2015 Tonsillectomy age 6 Social History: Smoking: Smokes marijuana on weekends Alcohol: None Allergies Sulfa (Sulfonamide Antibiotics) [Sulfa(Sulfonamide Antibiotics)] Allergy (Verified 08/27/20 01:53) Swelling HIVES HOME MEDICATIONS: Home Medications Medication Instructions Recorded Aspirin [ASA -] 81 mg PO DAILY #0 12/30/12 Amlodipine Besylate 0 mg PO DAILY 11/25/18 Atorvastatin Ca [Lipitor] 0 mg PO HS 11/25/18 Carvedilol [Coreg -] 0 mg PO BID 11/25/18 Lisinopril 0 mg PO BID 11/25/18 Ticagrelor [Brilinta] 0 mg PO BID 11/25/18 REVIEW OF SYSTEMS SEE HPI PHYSICAL EXAMINATION Vital Signs - 24 hr 08/27/20 01:30 Temperature 98.5 F Pulse Rate 75 Respiratory 18 Rate Blood Pressure 151/94 O2 Sat by Pulse 97 Oximetry (%) GENERAL: Awake, alert, and fully oriented, in no acute distress. HEAD: Normal with no signs of trauma. EYES: Pupils equal, round and reactive to light, extraocular movements intact EARS, NOSE, THROAT: Ears normal, nares patent, oropharynx clear without exudates. Moist mucous membranes. NECK: Normal range of motion, supple without lymphadenopathy LUNGS: Breath sounds equal, clear to auscultation bilaterally. No accessory muscle use. HEART: Regular rate and rhythm, normal S1 and S2 without murmur, rub or gallop. ABDOMEN: Soft, nontender, not distended, normoactive bowel sounds, no guarding, no rebound, no masses. MUSCULOSKELETAL: Normal range of motion at all joints. No bony deformities or tenderness. UPPER EXTREMITIES: 2+ pulses, warm, well-perfused. Muscle strength 5/5 bilatreally LOWER EXTREMITIES: 2+ pulses, warm, well-perfused. Muscle strength 5/5 bilaterally NEUROLOGICAL: Cranial nerves II-XII intact. Normal speech. Broad based gait, with instability noted during tandem walking, heel walking. PSYCHIATRIC: Cooperative. Good eye contact. Appropriate mood and affect. Laboratory Results - last 24 hr 08/27/20 08/27/20 08/27/20 02:47 02:47 02:47 WBC 8.4 RBC 4.77 Hgb 14.5 Hct 41.9 MCV 88.0 MCH 30.5 MCHC 34.7 RDW 14.5 Plt Count 173 MPV 9.4 Absolute Neuts (auto) 6.0 Neutrophils % 71.7 Lymphocytes % 10.3 Monocytes % 7.8 Eosinophils % 8.7 H Basophils % 1.5 Nucleated RBC % 0 PT with INR 15.00 H INR 1.28 H PTT (Actin FS) 31.6 Sodium Potassium Chloride Carbon Dioxide Anion Gap BUN Creatinine Est GFR (CKD-EPI)AfAm Est GFR (CKD-EPI)NonAf POC Glucometer Random Glucose Calcium Total Bilirubin AST ALT Alkaline Phosphatase Creatine Kinase Troponin I Total Protein Albumin Triglycerides 89 Cholesterol 143 Total LDL Cholesterol 84 HDL Cholesterol 39 L Vitamin B12 494 TSH 2.14 Blood Type Antibody Screen 08/27/20 08/27/20 08/27/20 02:47 02:47 02:59 WBC RBC Hgb Hct MCV MCH MCHC RDW Plt Count MPV Absolute Neuts (auto) Neutrophils % Lymphocytes % Monocytes % Eosinophils % Basophils % Nucleated RBC % PT with INR INR PTT (Actin FS) Sodium 139 Potassium 3.6 Chloride 105 Carbon Dioxide 28 Anion Gap 6 L BUN 11.7 Creatinine 1.1 Est GFR (CKD-EPI)AfAm 81.22 Est GFR (CKD-EPI)NonAf 70.07 POC Glucometer 122 Random Glucose 108 H Calcium 8.9 Total Bilirubin 0.6 AST 15 ALT 26 Alkaline Phosphatase 86 Creatine Kinase 77 Troponin I < 0.02 Total Protein 7.4 Albumin 3.8 Triglycerides Cholesterol Total LDL Cholesterol HDL Cholesterol Vitamin B12 TSH Blood Type O POSITIVE Antibody Screen Negative ASSESSMENT/PLAN: Alcides Monge is a 65 year old man with PMH hypertension, hyperlipidemia, CAD (stent placed in 2000, then 2 placed following ID in 2014), sarcoidosis, presenting with unsteady gait and head pressure, admitted with suspected stroke. #Suspected ischemic stroke, cerebellar - Last known well: 08/26/2020 at 20:00 - CT head: no infarct detectable on CT, no hemorrhage, no mass shift, 7.3 mm low density focus at left basal ganglia - Dr. Reed has been consulted - Continue Atorvastatin 80 mg - Continue Aspirin 81 - Speech and swallow evaluation - Fall precautions - Allow for permissive hypertension #Chest pain - Pain occurring at rest; alleviated by exercise - Patient follows with Dr. Xiong cardiology - Cardio consulted - F/u echo - First troponin negative; trend DVT prophylaxis: Lovenox FEN - no standing fluids - monitor am labs - npo Family Medical History Family History: As Documented Visit type - Medication Review Med list reviewed for High Risk Meds patients 65 and older: Yes - Emergency Visit Emergency Visit: Yes ED Registration Date: 08/27/20 Care time: The patient presented to the Emergency Department on the above date and was hospitalized for further evaluation of their emergent condition. - New Patient This patient is new to me today: Yes Date on this admission: 08/27/20 - Critical Care Critical Care patient: No ATTENDING PHYSICIAN STATEMENT I saw and evaluated the patient. I reviewed the resident's note and discussed the case with the resident. I agree with the resident's findings and plan as documented. SUBJECTIVE: OBJECTIVE: ASSESSMENT AND PLAN:
--- NOTE | 2020-08-27 07:49 | PN ---
Progress Note, Physician Chief Complaint: AWAKE ALERT SEEN IN THE E.D. DENIES CHEST PAIN OR SOB EVENTS AND NOTES REVIEWED - Current Medication List Current Medications: Active Medications Aspirin (Asa -) 81 mg PO DAILY [facility] Atorvastatin Calcium (Lipitor -) 80 mg PO HS [facility] Enoxaparin Sodium (Lovenox -) 40 mg SQ DAILY [facility] - Objective Vital Signs: Vital Signs Temperature 98.5 F 08/27/20 06:08 Pulse Rate 58 L 08/27/20 06:08 Respiratory Rate 18 08/27/20 06:08 Blood Pressure 134/84 08/27/20 06:08 O2 Sat by Pulse Oximetry (%) 96 08/27/20 06:08 Constitutional: Yes: Mild Distress Cardiovascular: Yes: Regular Rate and Rhythm Respiratory: Yes: WNL Gastrointestinal: Yes: WNL Genitourinary: Yes: WNL Neurological: Yes: Unsteady Gait, Other Labs: CBC, BMP 08/27/20 02:47 08/27/20 02:47 INR, PTT INR 1.28 (0.83-1.09) H 08/27/20 02:47 Problem List - Problems (1) Ataxic gait Code(s): R26.0 - ATAXIC GAIT (2) Coronary artery disease Code(s): I25.10 - ATHSCL HEART DISEASE OF [place] CORONARY ARTERY W/O ANG PCTRS Qualifiers: Coronary Disease-Associated Artery/Lesion type: [place] artery [place] vs. transplanted heart: [place] heart Associated angina: without angina Qualified Code(s): I25.10 - Atherosclerotic heart disease of [place] coronary artery without angina pectoris (3) Headache Code(s): R51.9 - HEADACHE, UNSPECIFIED Qualifiers: Headache type: unspecified Headache chronicity pattern: acute headache Intractability: not intractable Qualified Code(s): R51.9 - Headache, unspe cified (4) Hypertension Code(s): I10 - ESSENTIAL (PRIMARY) HYPERTENSION Qualifiers: Hypertension type: essential hypertension Qualified Code(s): I10 - Essential (primary) hypertension (5) Status post insertion of drug-eluting stent into left anterior descending (LAD) artery Code(s): Z95.5 - PRESENCE OF CORONARY ANGIOPLASTY IMPLANT AND GRAFT Assessment/Plan NEUROLOGY/CARDIOLOGY EVAL IN PROGRESS PT EVAL FALL RISKS NEURO CHECKS ECHO PENDING OOB TO CHAIR DVT PROPHYLAXIS TELEMETRY MONITORING
[2020-08-27] MEDS ORDERED: ENOXAPARIN NA (PORCINE) 40 MG/0.4 ML DISP.SYRIN SQ ONE (09:05)
[2020-08-27] MEDS ORDERED: ASPIRIN COATED 81 MG TABLET.EC ONE (09:05)
[2020-08-27] MEDS: ASPIRIN 81 MG CHEWABLE TABLETS PO SCH (10:00)
[2020-08-27] MEDS: ENOXAPARIN NA (PORCINE) 40 MG/0.4 ML DISP.SYRIN SQ SCH (10:00)
--- NOTE | 2020-08-27 10:04 | CON.CARD ---
Consult Consult Specialty:: Cardiology Referred by:: Jodi Paige MD Reason for Consultation:: CAD s/p ALTON - History of Present Illness Chief Complaint: Gait instability History of Present Illness: 65 yo WM HTN, chol, CAD post STEMI (mLAD ISR) s/p ALTON 2014, pulmonary sarcoidosis last seen in office 05/29/2020 presents for evaluation of sudden onset of mild bilateral constant frontal headache (R>L) and gait imbalance/difficulty walking since resolved after admission. Feels unsteady on feet. Headache didnot improve with Ibuprofen. Denies lightheadedness, vertigo, syncope, vision changes, hearing loss, neck pain or stiffness, facial droop, difficulty speaking, confusion, numbness/tingling or weakness. Patient denies chest pain, shortness of breath, abdominal pain, near or true syncope, orthopnea, PND, LE edema, palpitations, fever, chills, nausea, vomiting, diarrhea, constipation, dysuria, frequency, urgency, melena, hematochezia or hematuria. Smokes marijuana daily. Denies alcohol, tobacco or illicit drug use. No sick contacts or recent travels. Family history of heart disease on both sides of the family. Last office visit 05/29/2020/ - History Source History Provided By: Patient Limitations to Obtaining History: No Limitations - Past Medical History Cardio/Vascular: Yes: CAD, HTN, Hyperlipdemia - Past Surgical History Past Surgical History: Yes: Stent (x3) - Alcohol/Substance Use Hx Alcohol Use: No - Smoking History Smoking history: Never smoked Have you smoked in the past 12 months: No Aproximately how many cigarettes per day: 0 Home Medications - Allergies Allergies/Adverse Reactions: Allergies Allergy/AdvReac Type Severity Reaction Status Date / Time Sulfa (Sulfonamide Allergy Swelling Verified 08/27/20 01:53 Antibiotics) [Sulfa(Sulfonamide Antibiotics)] - Home Medications Home Medications: Ambulatory Orders Amlodipine Besylate 10 mg PO DAILY 08/27/20 Aspirin 81 mg PO DAILY 08/27/20 Atorvastatin Ca [Lipitor] 80 mg PO HS 08/27/20 Carvedilol 12.5 mg PO BID 08/27/20 Cholecalciferol (Vitamin D3) [Vitamin D3 -] 1,000 unit PO DAILY 08/27/20 Lisinopril 10 mg PO BID 08/27/20 [place]-3 Fatty Acids/Fish Oil [Fish Oil 1,000 mg Capsule] 1 cap PO BID 08/27/20 Review of Systems - Review of Systems Neurological: reports: Headache, Unsteady Gait Vital Signs: Vital Signs Temperature 98.5 F 08/27/20 06:08 Pulse Rate 58 L 08/27/20 06:08 Respiratory Rate 18 08/27/20 06:08 Blood Pressure 134/84 08/27/20 06:08 O2 Sat by Pulse Oximetry (%) 96 08/27/20 06:08 Constitutional: Yes: No Distress, Calm Neck: Yes: Supple Respiratory: Yes: Regular, CTA Bilaterally Gastrointestinal: Yes: Normal Bowel Sounds, Soft, Abdomen, Obese Cardiovascular: Yes: Regular Rate and Rhythm JVD: No Carotid Bruit: No Heart Sounds: Yes: S1, S2 Edema: No - Other Data Labs, Other Data: CBC, BMP 08/27/20 02:47 08/27/20 02:47 INR, PTT INR 1.28 (0.83-1.09) H 08/27/20 02:47 Troponin, BNP 08/27/20 02:47 Troponin I < 0.02 Troponin, BNP 08/27/20 02:47 Troponin I < 0.02 NSR @ 63 1st deg AVB, RBBB, LAFB similar to previous 05/29/2020 Ejection Fraction %: LVEF > or = 40 % Imaging - Results Chest X-ray: Report Reviewed (NAD) Cat Scan: Report Reviewed (HCT: No acute stroke) Problem List - Problems (1) Coronary artery disease Code(s): I25.10 - ATHSCL HEART DISEASE OF [place] CORONARY ARTERY W/O ANG PCTRS Qualifiers: Coronary Disease-Associated Artery/Lesion type: [place] artery [place] vs. transplanted heart: [place] heart Associated angina: without angina Qualified Code(s): I25.10 - Atherosclerotic heart disease of [place] coronary artery without angina pectoris (2) Ataxic gait Code(s): R26.0 - ATAXIC GAIT (3) Headache Code(s): R51.9 - HEADACHE, UNSPECIFIED Qualifiers: Headache type: unspecified Headache chronicity pattern: acute headache Intractability: not intractable Qualified Code(s): R51.9 - Headache, unspecified (4) Hyperlipidemia LDL goal <70 Code(s): E78.5 - HYPERLIPIDEMIA, UNSPECIFIED (5) Hypertension Code(s): I10 - ESSENTIAL (PRIMARY) HYPERTENSION Qualifiers: Hypertension type: essential hypertension Qualified Code(s): I10 - Essential (primary) hypertension (6) Mediastinal lymphadenopathy due to sarcoidosis Code(s): R59.0 - LOCALIZED ENLARGED LYMPH NODES; D86.1 - SARCOIDOSIS OF LYMPH NODES (7) Old anterior myocardial infarction Code(s): I25.2 - OLD MYOCARDIAL INFARCTION (8) Status post insertion of drug-eluting stent into left anterior descending (LAD) artery Code(s): Z95.5 - PRESENCE OF CORONARY ANGIOPLASTY IMPLANT AND GRAFT Assessment/Plan Rule out CVA - CXR shows cardiomegaly, unfolded aorta and wide mediastinum with no evidence of acute lung disease. No evidence of acute intracranial pathology on noncontrast head CT scan. CTA head/neck didnot reveal any acute abnormality. EKG shows NSR at 63/minute,1o AV block, RBBB, left anterior fascicular block and QTc 437 with no significant acute ischemic ST-T wave changes. 09/02/19 Echo: Normal LV size and fxn LVEF 55-60%, mild LVH, tr MR, tr TR, mildly dilated aortic root 11/11/19 Nuclear MPI: Moderate apical fixed defect c/w infarct and latricia-infarct ischemia, apical AK LVEF 54% Oct 2017 MPI: moderate apical infarct with small latricia-infarct ischemia, LVEF 54% Sep 2017 Echo: Normal LV systolic fxn, mild impaired LV relaxation, mild MR, TR, MN 1. Gait instability and [place] rule out stroke/TIA 2. CAD s/p STEMI (mLAD in-stent restenosis) post ALTON, angina pectoris 3. HTN 4. Mixed hyperlipidemia 5. Pulmonary sarcoidosis with extensive mediastinal LAD 6. Low vit D levels P:1. Ruled out for [place], F/u ECHO, carotid doppler, brain MRI, speech and swallow evaluation, neurochecks and implement fall/aspiration/seizure precautions., PT as tolerated, neuro input. Telemetry monitoring for PAF, if unrevealing may benefit from extended arrhythmia monitoring as outpatient 2. Continue Norvasc 10 qd, ASA 81 qd, Lipitor 80 qd, carvedilol 12.5 bid, lisinopril 10 bid, Lovaza 1 bid 3. F/u with Dr. Inga puente d/c 4. Thank you for consultative opportunity
--- NOTE | 2020-08-27 10:17 | CONSULT ---
Admitting History and Physical - Primary Care Physician PCP: Luanne Kang - Admission History of Present Illness: 65 year old man with PMH hypertension, hyperlipidemia, CAD (stent placed in 2000, then 2 placed following SC in 2014), sarcoidosis, presenting with unsteady gait and head pressure, admitted with suspected stroke. CT head: no infarct detectable on CT, no hemorrhage, no mass shift, 7.3 mm low density focus at left basal ganglia NPO Selected Entries 08/27/20 08/27/20 08/27/20 01:30 06:08 07:15 Temperature 98.5 F 98.5 F Pulse Rate 75 Pulse Rate [ 58 L Left Radial] Respiratory 18 18 Rate Respiratory Non-Labored Non-Labored Effort Blood Pressure 151/94 Blood Pressure 134/84 [Right Arm] O2 Sat by Pulse 97 96 Oximetry (%) Oxygen Delivery Room Air Room Air Method 08/27/20 07:19 Temperature Pulse Rate Pulse Rate [ Left Radial] Respiratory Rate Respiratory Non-Labored Effort Blood Pressure Blood Pressure [Right Arm] O2 Sat by Pulse Oximetry (%) Oxygen Delivery Room Air Method Laboratory Tests 08/27/20 08/27/20 02:47 03:32 WBC 8.4 COVID-19 ([facility]) Pending Seen in ED History Source: Patient Limitations to Obtaining History: No Limitations - Past Medical History Cardiovascular: Yes: CAD, HTN, Hyperlipdemia - Past Surgical History Past Surgical History: Yes: Stent (x3) - Smoking History Smoking history: Never smoked Have you smoked in the past 12 months: No Aproximately how many cigarettes per day: 0 - Alcohol/Substance Use Hx Alcohol Use: No - Social History 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, [employer] History - Admission Reason For Visit: ATAXIC GAIT,HEADACHE - Diagnostics X-ray: Report Reviewed CT Scan: Report Reviewed MRI: Pending - General Mental Status: Alert and Oriented, Awake and Alert, Able to Follow Commands Attention: Intact Ability to Follow Directions: Excellent Head/Neck Control: WFL - Hearing Hearing: Normal Speech Evaluation - Communication Primary Language: SERBIAN Communication: Yes: Within Normal Limits Oral Expression Ability: Yes: No Impairment - Speech Production Able to Make Needs Known: Yes: WNL Intelligibility: Yes: WNL - Speech Characteristics Voice Loudness: Normal Voice Pitch: Yes: Normal Voice Phonatory-based Quality: Yes: Normal Speech Pattern: Normal Speech Clarity: < 100% Nasal Resonance: Normal Articulation: Yes: Precise Rate of Speech: Intact - Language/Auditory Comprehension Follows: Yes: 2 Stage Simple Commands Observation: Able to respond to yes/no queries: Yes, Yes/No Confusion: No, Comprehends Conversational Speech: Yes - Language/Verbal Expression Able to Respond to Simple Queries: Yes: WNL Able to Communicate Wants and Needs: Yes: WNL Functional Communication Status: Yes: WNL Attention: Yes: Intact - 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: WNL Short Term Memory: Yes: WNL - Swallow Evaluation/Bedside Assessment Current Nutritional Intake: NPO Oral Secretions: Yes: WFL Dentition: Yes: Adequate Facial Symmetry at Rest: Symmetrical Facial Symmetry on Retraction: Symmetrical Facial Movement: Controlled Sensation: Normal Against Resistance Opening: Normal Against Resistance Closing: Normal Pucker Lips: Normal Smile: Normal Lingual Movement: Normal, Symmetric Lingual Speed of Movement: Normal Lingual Movement Strgth Against Opposition: Normal Lingual Movement Characteristics: Normal Velopharyngeal Movement: Normal Laryngeal Elevation: WFL Laryngeal Movement: Able to Palpate Rate of Intake: WFL Bolus Size: WFL Labial Seal: WFL Chewing: WFL Oral Prep Time: WFL A-P Transit: WFL Pocketing: None Timing of Swallow: WFL Coughing/Throat Clear: No Change in Voice: No Recommendations - Speech Evaluation, Impression/Plan Impression: Speech, swallowing, cognition, language intact. - Disposition Discharge to: To be Determined - Dysphagia Impressions/Plan Swallowing Skills: [facility] Dysphagia Impressions: No Impairment *Silent aspiration: cannot be R/O at bedside Dysphagia Treatment Plan: OOB for meals, OOB for 1 h. after meals Recommendations: Neuro Consult (pending) - Recommendations Diet Consistency: Regular Medication Administration: Whole with water Liquids: Thin Liquids
--- NOTE | 2020-08-27 11:45 | EKG ---
Test Reason : Blood Pressure : / mmHG Vent. Rate : 063 BPM Atrial Rate : 063 BPM P-R Int : 216 ms QRS Dur : 146 ms QT Int : 428 ms P-R-T Axes : 049 -58 031 degrees QTc Int : 437 ms SINUS RHYTHM WITH 1ST DEGREE A-V BLOCK RIGHT BUNDLE BRANCH BLOCK LEFT ANTERIOR FASCICULAR BLOCK BIFASCICULAR BLOCK MINIMAL VOLTAGE CRITERIA FOR LVH, MAY BE NORMAL VARIANT ANTEROSEPTAL INFARCT (CITED ON OR BEFORE 12-JUL-2015) ABNORMAL ECG WHEN COMPARED WITH ECG OF 25-NOV-2018 12:56, NO SIGNIFICANT CHANGE WAS FOUND Confirmed by PAULINE CHAPPELL MD ([id number]) on 08/27/2020 11:45:00 AM Referred By: Confirmed By:PAULINE CHAPPELL MD
--- NOTE | 2020-08-27 12:48 | ECHO ---
Name: LIBBY SPRAGUE Exam:Adult Echocardiogram Study Date: 08/27/2020 08:07 AM Age: 65 yrs MMode/2D Measurements & Calculations IVSd: 0.89 cm Ao root diam: 3.2 cm LVIDd: 4.0 cm LA dimension: 3.7 cm LVIDs: 2.9 cm ACS: 2.1 cm LVPWd: 1.2 cm LVPWs: 1.6 cm EDV(Teich): 69.1 ml ESV(Teich): 31.6 ml LVOT diam: 2.2 cm RV S Colton: 11.4 cm/sec Doppler Measurements & Calculations MV E max colton: 64.7 cm/sec Ao V2 max: 154.7 cm/sec MV A max colton: 97.2 cm/sec Ao max P.6 mmHg MV E/A: 0.66 ANASTASIA(V,D): 2.6 cm2 MV dec time: 0.19 sec LV V1 max P.4 mmHg PA V2 max: 103.2 cm/sec LV V1 max: 104.6 cm/sec PA max P.3 mmHg Med Peak E' Colton: 5.4 cm/sec Med E/e': 12.0 Lat Peak E' Colton: 7.6 cm/sec Lat E/e': 8.5 Procedure A complete two-dimensional transthoracic echocardiogram was performed (2D, M-mode, Doppler and color flow Doppler). Left Ventricle The left ventricle is normal in size. Left ventricular systolic function is normal. Ejection Fraction = 60- 65%. No regional wall motion abnormalities noted. Right Ventricle The right ventricle is normal size. The right ventricular systolic function is normal. Atria The left atrial size is normal. Right atrial size is normal. Mitral Valve The mitral valve is normal in structure and function. There is no mitral regurgitation noted. Tricuspid Valve The tricuspid valve is normal in structure and function. There is mild tricuspid regurgitation. Aortic Valve There is mild aortic sclerosis.;. Mild aortic regurgitation. Pulmonic Valve The pulmonic valve is not well visualized. Great Vessels The aortic root is normal size. Pericardium/Pleura There is no pericardial effusion. Interpretation Summary The left ventricle is normal in size. Left ventricular systolic function is normal. No regional wall motion abnormalities noted. Ejection Fraction = 60-65%. There is mild tricuspid regurgitation. There is mild aortic sclerosis. Mild aortic regurgitation. There is no pericardial effusion. Jason Xiong MD 08/27/2020 12:47 PM
[2020-08-27] MEDS: amLODIPine BESYLATE 10 MG TABLET (FP) PO SCH (16:29)
[2020-08-27] MEDS: LISINOPRIL 10 MG TABLET PO SCH (16:29)
[2020-08-27 17:26] LABS: PH,URINE 6.5 (5.0-8.0); URINE APPEARANCE CLEAR; URINE BILIRUBIN NEGATIVE (NEGATIVE); URINE COLOR YELLOW; URINE GLUCOSE (UA) NEGATIVE (NEGATIVE); URINE KETONE NEGATIVE (NEGATIVE); URINE LEUK ESTERASE NEGATIVE (NEGATIVE); URINE NITRITE NEGATIVE (NEGATIVE); URINE PROTEIN NEGATIVE (NEGATIVE); URINE UROBILINOGEN 0.2 mg/dL (0.2-1.0)
--- NOTE | 2020-08-27 20:34 | CONSULT ---
Consult - text type - Consultation Consultation Note: NEUROLOGY CONSULTATION: Patient is in MRI and unavailable for examination. I will return in AM Thank you, Fredis Reed MD
[2020-08-27] MEDS ORDERED: ATORVASTATIN CA 40 MG TABLET (FP) PO SCH (22:00)
[2020-08-27] MEDS: CARVEDILOL 12.5 MG TABLET (FP) PO SCH (23:26)
[2020-08-28 07:21] LABS: BASO % 1.3 % (0-2.0); EOS % 7.5 % (0-4.5); HEMATOCRIT 41.6 % (35.4-49); HEMOGLOBIN 14.6 GM/dL (11.7-16.9); LYMPH % 10.5 % (8-40); MCH 30.7 pg (25.7-33.7); MCHC 35.2 g/dl (32.0-35.9); MEAN PLT VOLUME 9.2 fl (7.5-11.1); MONO % 9.8 % (3.8-10.2); NEUT % 70.9 % (42.8-82.8); PLATELET COUNT 174 K/MM3 (134-434); RBC 4.78 M/mm3 (4.00-5.60); RDW 14.3 % (11.9-15.9); WHITE BLOOD COUNT 8.2 K/mm3 (4.0-10.0)
[2020-08-28 07:34] LABS: ALBUMIN 3.6 g/dl (3.4-5.0); BILIRUBIN,TOTAL 0.8 mg/dL (0.2-1); BLOOD UREA NITROGEN 12.7 mg/dL (7-18); CALCIUM 9.2 mg/dL (8.5-10.1); CREATININE 0.9 mg/dL (0.55-1.3); POTASSIUM 3.7 mmol/L (3.5-5.1); TOT PROT 7.1 g/dl (6.4-8.2)
[2020-08-28] MEDS: LISINOPRIL 10 MG TABLET PO SCH (09:43)
[2020-08-28] MEDS: ASPIRIN 81 MG CHEWABLE TABLETS PO SCH (09:43)
[2020-08-28] MEDS: CARVEDILOL 12.5 MG TABLET (FP) PO SCH (09:43)
[2020-08-28] MEDS: amLODIPine BESYLATE 10 MG TABLET (FP) PO SCH (09:43)
[2020-08-28] MEDS: ENOXAPARIN NA (PORCINE) 40 MG/0.4 ML DISP.SYRIN SQ SCH (09:44)
--- NOTE | 2020-08-28 10:29 | PN ---
Progress Note, Physician Chief Complaint: Unsteady gait BL frontal headache History of Present Illness: Alcides Monge is a 65 year old man with PMH hypertension, hyperlipidemia, CAD and CA (stent placed in 2000, then two stents placed 2014), sarcoidosis, who is presenting with unsteady gait since 08/26/2020 20:00. He was watching tv, got up to use the restroom, and felt very unsteady on his feet, reports 'wobbling' to the restroom. He decided to wait to see if symptoms resolved but they persisted throughout the evening. He also describes a pressure in the head, rated as 3/10, band like sensation across the forehead, that began at approximately 20:00. When the unsteady gait and headache persisted, he decided to present to the ED. He denies, lightheadedness, syncope, fall. Of note, this past week he has been experiencing intermittent chest pain that alternates sides, and occurs at rest. He states the pain is alleviated by walking around. He has never experienced these symptoms before. Evaluated by Cardiology: Echo 08/27/20-Nomral LVEF at 60%, mild tricuspid and aortic regurg, mild aortic sclerosis CT head 08/27-Negative for any new infarct MRI/MRA brain-08/27-No evidence acute infarction. No evidence of intracerebral hemorrhage, subdural fluid collection or hydrocephalus. Cerebellopontine angles unremarkable at this noncontrast study. Multiple areas of gliosis at the junction of white and madrigal matter of both cerebral hemispheres sequela most probably to hypertension or small vessel arteriosclerosis. Extensive mucosal thickening obliterating the right sphenoid sinus sequela most probably to sinusitis. MRI/MRA neck 08/27-negative Neurology eval pending - Current Medication List Current Medications: Active Medications Amlodipine Besylate (Norvasc -) 10 mg PO DAILY [facility] Last Admin: 08/28/20 09:43 Dose: 10 mg Documented by: Aspirin (Asa -) 81 mg PO DAILY [facility] Last Admin: 08/28/20 09:43 Dose: 81 mg Documented by: Atorvastatin Calcium (Lipitor -) 80 mg PO HS [facility] Last Admin: 08/27/20 23:25 Dose: 80 mg Documented by: Carvedilol (Coreg -) 12.5 mg PO BID [facility] Last Admin: 08/28/20 09:43 Dose: 12.5 mg Documented by: Enoxaparin Sodium (Lovenox -) 40 mg SQ DAILY [facility] Last Admin: 08/28/20 09:44 Dose: 40 mg Documented by: Lisinopril (Prinivil) 10 mg PO DAILY [facility] Last Admin: 08/28/20 09:43 Dose: 10 mg Documented by: - Objective Vital Signs: Vital Signs Temperature 97.5 F L 08/28/20 05:44 Pulse Rate 73 08/28/20 05:44 Respiratory Rate 18 08/28/20 05:44 Blood Pressure 137/84 08/28/20 05:44 O2 Sat by Pulse Oximetry (%) 95 08/28/20 05:44 Constitutional: Yes: Well Nourished, No Distress, Calm Cardiovascular: Yes: Regular Rate and Rhythm Respiratory: Yes: Regular, CTA Bilaterally Gastrointestinal: Yes: Normal Bowel Sounds, Soft Genitourinary: Yes: WNL Musculoskeletal: Yes: WNL Edema: No Peripheral Pulses WNL: Yes Neurological: Yes: Alert, Oriented Psychiatric: Yes: Alert, Oriented Labs: CBC, BMP 08/28/20 06:33 08/28/20 06:33 INR, PTT INR 1.28 (0.83-1.09) H 08/27/20 02:47 Problem List - Problems (1) Ataxic gait Assessment/Plan: -Cardiology eval appreciated -Neurology eval pending -PT -Echo 08/27/20-Nomral LVEF at 60%, mild tricuspid and aortic regurg, mild aortic sclerosis -CT head 08/27-Negative for any new infarct -MRI/MRA brain-08/27-No evidence acute infarction. No evidence of intracerebral hemorrhage, subdural fluid collection or hydrocephalus. Cerebellopontine angles unremarkable at this noncontrast study. Multiple areas of gliosis at the junction of white and madrigal matter of both cerebral hemispheres sequela most probably to hypertension or small vessel arteriosclerosis. Extensive mucosal thickening obliterating the right sphenoid sinus sequela most probably to sinusitis. -MRI/MRA neck 08/27-negative Problems reviewed: Yes Code(s): R26.0 - ATAXIC GAIT (2) Coronary artery disease Assessment/Plan: -Continue Statin + ASA Problems reviewed: Yes Code(s): I25.10 - ATHSCL HEART DISEASE OF [place] CORONARY ARTERY W/O ANG PCTRS Qualifiers: Coronary Disease-Associated Artery/Lesion type: [place] artery [place] vs. transplanted heart: [place] heart Associated angina: without angina Qualified Code(s): I25.10 - Atherosclerotic heart disease of [place] coronary artery without angina pectoris (3) Headache Assessment/Plan: -2/2 to complicated migraine headache -To F/U outpatient with neurology Problems reviewed: Yes Code(s): R51.9 - HEADACHE, UNSPECIFIED Qualifiers: Headache type: unspecified Headache chronicity pattern: acute headache Intractability: not intractable Qualified Code(s): R51.9 - Headache, unspecified Assessment/Plan See problem list Walked with PT, no Ataxia noted
[2020-08-28] MEDS ORDERED: ACETAMINOPHEN 325 MG TABLET (FP) PO PRN (10:33)
--- NOTE | 2020-08-28 10:36 | PN ---
Progress Note, [employer] - Note Progress Note: MRI/MRA brain-08/27-No evidence acute infarction. No evidence of intracerebral hemorrhage, subdural fluid collection or hydrocephalus. Cerebellopontine angles unremarkable at this noncontrast study. Multiple areas of gliosis at the junction of white and [place]al matter of both cerebral hemispheres sequela most probably to hypertension or small vessel arteriosclerosis. Extensive mucosal thickening obliterating the right sphenoid sinus sequela most probably to sinusitis. Selected Entries 08/28/20 08/28/20 01:42 05:44 Temperature 98 F 97.5 F L Pulse Rate 72 73 O2 Sat by Pulse 95 Oximetry (%) Laboratory Tests 08/28/20 06:33 WBC 8.2 Laboratory Tests 08/27/20 03:32 COVID-19 ([facility]) Not detected On reg diet/thin liquids
--- NOTE | 2020-08-28 10:36 | PN ---
Progress Note, Physician Chief Complaint: Events noted (Dr. Valencia's note reviewed from yesterday0 No new events overnight Not in distress History of Present Illness: Patient was seen and examined. Awake and alert. Chart was reviewed Denies chest pain, SOB or palpitations No further neurologic symptoms - Current Medication List Current Medications: Active Medications Acetaminophen (Tylenol -) 650 mg PO Q4H PRN PRN Reason: PAIN Amlodipine Besylate (Norvasc -) 10 mg PO DAILY [facility] Last Admin: 08/28/20 09:43 Dose: 10 mg Documented by: Aspirin (Asa -) 81 mg PO DAILY [facility] Last Admin: 08/28/20 09:43 Dose: 81 mg Documented by: Atorvastatin Calcium (Lipitor -) 80 mg PO HS [facility] Last Admin: 08/27/20 23:25 Dose: 80 mg Documented by: Carvedilol (Coreg -) 12.5 mg PO BID [facility] Last Admin: 08/28/20 09:43 Dose: 12.5 mg Documented by: Enoxaparin Sodium (Lovenox -) 40 mg SQ DAILY [facility] Last Admin: 08/28/20 09:44 Dose: 40 mg Documented by: Lisinopril (Prinivil) 10 mg PO DAILY [facility] Last Admin: 08/28/20 09:43 Dose: 10 mg Documented by: Loratadine (Claritin -) 10 mg PO DAILY [facility] - Objective Vital Signs: Vital Signs Temperature 97.5 F L 08/28/20 05:44 Pulse Rate 73 08/28/20 05:44 Respiratory Rate 18 08/28/20 05:44 Blood Pressure 137/84 08/28/20 05:44 O2 Sat by Pulse Oximetry (%) 95 08/28/20 05:44 Eyes: Yes: PERRL HENT: Yes: Atraumatic Neck: Yes: Supple Cardiovascular: Yes: Regular Rate and Rhythm, S1, S2 Respiratory: Yes: CTA Bilaterally Gastrointestinal: Yes: Normal Bowel Sounds, Soft. No: Tenderness Edema: No Additional Findings/Remarks: - Review of Systems Constitutional: denies: Chills, Fever Cardiovascular: denies: Shortness of Breath. denies: Chest Pain, Palpitations Respiratory: denies: SOB, SOB on Exertion. denies: Cough, Hemoptysis, Orthopnea, PND, Wheezing Gastrointestinal: denies: Abdominal Pain, Constipation, Diarrhea, Melena, Nausea, Rectal Bleeding, Vomiting Musculoskeletal: denies: Back Pain, Joint Pain Neurological: denies: Dizziness, Headache, Seizure, Syncope Labs: CBC, BMP 08/28/20 06:33 08/28/20 06:33 INR, PTT INR 1.28 (0.83-1.09) H 08/27/20 02:47 Problem List - Problems (1) TIA (transient ischemic attack) Code(s): G45.9 - TRANSIENT CEREBRAL ISCHEMIC ATTACK, UNSPECIFIED (2) Ataxic gait Code(s): R26.0 - ATAXIC GAIT (3) Coronary artery disease Code(s): I25.10 - ATHSCL HEART DISEASE OF [place] CORONARY ARTERY W/O ANG PCTRS Qualifiers: Coronary Disease-Associated Artery/Lesion type: [place] artery [place] vs. transplanted heart: [place] heart Associated angina: without angina Qualified Code(s): I25.10 - Atherosclerotic heart disease of [place] coronary artery without angina pectoris (4) Hyperlipidemia LDL goal <70 Code(s): E78.5 - HYPERLIPIDEMIA, UNSPECIFIED (5) Hypertension Code(s): I10 - ESSENTIAL (PRIMARY) HYPERTENSION Qualifiers: Hypertension type: essential hypertension Qualified Code(s): I10 - Essential (primary) hypertension (6) Mediastinal lymphadenopathy due to sarcoidosis Code(s): R59.0 - LOCALIZED ENLARGED LYMPH NODES; D86.1 - SARCOIDOSIS OF LYMPH NODES (7) STEMI (ST elevation myocardial infarction) Code(s): I21.3 - ST ELEVATION (STEMI) MYOCARDIAL INFARCTION OF UNSP SITE (8) Status post insertion of drug-eluting stent into left anterior descending (LAD) artery Code(s): Z95.5 - PRESENCE OF CORONARY ANGIOPLASTY IMPLANT AND GRAFT Assessment/Plan 1. Gait instability and [place] suggest TIA 2. CAD s/p STEMI (mLAD in-stent restenosis) post ALTON, angina pectoris 3. HTN 4. Mixed hyperlipidemia 5. Pulmonary sarcoidosis with extensive mediastinal LN 6. Vitamin D deficiency PLAN: 1. In patient testings reviewed. May consider outpatient monitoring for PAF. External heart monitoring for 14 days may be considered 2. Continue Norvasc 10 mg QD, ASA 81 mg QD, Lipitor 80 mg QD, carvedilol 12.5 mg BID, Lisinopril 10 mg BID and Lovaza 1 g BID 3. Follow up with Dr. Jason Hampton ([facility]) upon discharge Jason Xiong MD
[2020-08-28] MEDS ORDERED: LORATADINE 10 MG TABLET PO SCH (10:45)
--- NOTE | 2020-08-28 11:48 | CONSULT ---
Consult - text type - Consultation Consultation Note: NEUROLOGY CONSULTATION is greatly appreciated: Events reviewed and discussed with Ms. Reilly. Patient examined. 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 Maintained on: Carvedilol. lisinopril, atorvastatin, ASA (81mg). H/O episodic headaches "his whole life." These are "constant" holocranial headaches occurringapprox 1/month. Attributed to sinuses. On Thursday night Pt. developed a diffuse "pressure" around his head followed by unsteady gait involving "both feet." Unsteadiness improved in ED and headache resolved soon after. CT of head (reviewed): scattered microvascular changes. MRI of brain (reviewed): Diffuse subcortical microvascular changes EXAM: No bruits. Cor reg. NEURO: MS/speech: Normal CN II-XII: normal Motor: No drift or tremor. Normal strength, tone and bulk. Normal reflexes. Toes downgoing Coord: No FTN dystaxia Sensory: Normal. Romberg neg Gait: Normal IMP: Normal exam Migraine headaches Vague neurological symptoms most likely due to complicated migraine (vertebrobasilar migraine). SUGGEST: Continue carvedilol for migraine prophylaxis Reassure patient Cont. ASA 81 Neuro f/u ad carlos. Thank you very much, Fredis Reed MD
[2020-08-28 14:29] VITALS: BP 131/74; PULSE 78; TEMP 98
== END 2020-08-28 14:02 | disposition home or self-care (01) ==
LOC: JER 01:24 → INTOOBSV 03:25 → UNDOADMOB 03:25 → JERBED 03:25 → J4W 15:45 → JERBED 15:45 → J4W 08-28 10:21
PROVIDERS: ADMIT Internal Medicine; ATTEND Family Medicine
PROC: 3E023GC Introduction of Other Therapeutic Substance into Muscle, Percutaneous Approach (ICD-10-PCS; principal; 2020-08-28)
DX: G45.9 Transient cerebral ischemic attack, unspecified (principal); R26.0 Ataxic gait; I25.10 Atherosclerotic heart disease of native coronary artery without angina pectoris; I25.2 Old myocardial infarction; E78.5 Hyperlipidemia, unspecified; I10 Essential (primary) hypertension; E66.9 Obesity, unspecified; Z68.31 Body mass index [BMI] 31.0-31.9, adult; D86.89 Sarcoidosis of other sites; R51.9 Headache, unspecified; R59.0 Localized enlarged lymph nodes; Z95.5 Presence of coronary angioplasty implant and graft; Z88.2 Allergy status to sulfonamides; E55.9 Vitamin D deficiency, unspecified
CPT/HCPCS: 36415; 70450-TC; 70544-TC; 70547-TC; 70551-TC; 71045-TC-FY; 80053; 80061; 81003; 82550; 82607; 82962; 83721; 84443; 84484; 85025; 85610; 85730; 86850; 86900; 86901; 93005; 93010; 93306-TC; 97116-GP; 97161-GP; 99285-25; C9803; G0378; U0003